=== PATIENT | male | born 1970 | race Caucasian/White ===

== ENCOUNTER 2025-03-18 09:08 | Day surgery (SDC) | payer OTHER ==
[2025-03-18] VITALS (16 sets, daily range): BP systolic 95–131; BP diastolic 65–95
[~2025-03-18] VITALS: Ht 172.7 cm; Wt 96.4 kg
[~2025-03-18 09:08] MED LIST: AMLO10 PO; ASPI81CH PO; ATOR10 PO; CELE200 PO; CRUTCH3 USE; HYDACE5 PO; HYDCHL25 PO; IBUP600 PO; METF500 PO; OLME20 PO; OMEP20ER PO; RXHYDACE PO
--- NOTE | 2025-03-18 10:58 | NUR ---
03/18/25 1058 Chad Wright CONFIRMED AND REVIEWED H&P, MEDCICATIONS, ALLERGIES, MEDICAL HISTORY, RESPIRATORY HISTORY, VITAL SIGNS, 3-LEAD EKG, CONSENTS, AND PHYSICIAN ORDERS. PATIENT CONFIRMS NPO STATUS AND AGREES WITH SCHEDULED PROCEDURE. MONITOR INTACT WITH CONTINUOUS PULSE OXIMETRY, CAPNOGRAPHY, 3-LEAD EKG, INTERMITTENT BP. SUPPLEMENTAL O2 TO BE TITRATED THROUGHOUT PROCEDURE TO MAINTAIN O2 SATURATION ABOVE 90%. PATIENT DETERMINED TO BE ASA APPROPRIATE FOR PROPOFOL SEDATION PRIOR TO START OF PROCEDURE BY DR. MAYO.
--- NOTE | 2025-03-18 11:42 | NUR ---
Discharge instructions reviewed with patient. Patient verbalizes understanding. Copy given to patient to take home. Patient States Post-Procedure ride home has been arranged. Discharged via wheelchair to private car for ride home.
== END 2025-03-18 11:43 | disposition home or self-care (01) ==
LOC: ORSCMMR 09:08 → ORD 10:30 → ORSCMMR 10:30 → ORD 03-20 13:15
PROVIDERS: Family Medicine
PROC: 0DJD8ZZ Inspection of Lower Intestinal Tract, Via Natural or Artificial Opening Endoscopic (ICD-10-PCS; principal; 2025-03-18 10:30)
DX: Z12.11 Encounter for screening for malignant neoplasm of colon (principal); K64.4 Residual hemorrhoidal skin tags; K64.0 First degree hemorrhoids; Z86.0100 Personal history of colon polyps, unspecified; E78.2 Mixed hyperlipidemia; I10 Essential (primary) hypertension; E11.9 Type 2 diabetes mellitus without complications; Z79.82 Long term (current) use of aspirin; Z79.84 Long term (current) use of oral hypoglycemic drugs; Z79.899 Other long term (current) drug therapy; Z87.891 Personal history of nicotine dependence
CPT/HCPCS: 82947; J2704; J7120